=== PATIENT | male | born 1995 | race Two or more races ===

== ENCOUNTER 2020-07-29 19:47 | Emergency (ER) | payer SELFPAY ==
[~2020-07-29] VITALS: Ht 162.6 cm; Wt 70.5 kg
[2020-07-29] MEDS ORDERED: PROPARACAINE HCL 0.5% 15 ML OPHTHALMIC SOLUTION OD ONE (22:15)
[2020-07-29] MEDS ORDERED: FLUORESCEIN SODIUM 1 MG STRIP OD ONE (22:15)
[2020-07-29] MEDS ORDERED: ERYTHROMYCIN 0.5% 3.5 GM TUBE OPHTHALMIC OINTMENT OD ONE (23:00)
[2020-07-30 00:22] VITALS: BP 132/83
== END 2020-07-30 00:22 | disposition home or self-care (01) ==
LOC: EMS 19:47
DX: T15.01XA Foreign body in cornea, right eye, initial encounter (principal); W45.8XXA Other foreign body or object entering through skin, initial encounter; W22.8XXA Striking against or struck by other objects, initial encounter; Y93.89 Activity, other specified; Y92.89 Other specified places as the place of occurrence of the external cause; Y99.8 Other external cause status
CPT/HCPCS: 65222; 99285; Z7502; Z7610